=== PATIENT | male | born 1935 | race Caucasian/White ===

== ENCOUNTER 2016-06-12 09:46 | Outpatient (CLI) | payer MEDICARE, MEDICAID ==
[2016-06-12 10:41] LABS: #Basophils 0.1 thou/uL (0.0-0.2); #Eosinphils 0.1 thou/uL (0.0-0.7); #Lymphocytes 1.7 thou/uL (1.20-3.40); #Monocytes 0.7 thou/uL (0.11-0.59); #Neutrophils 3.1 thou/uL (1.40-6.50); %Eosinophils 1.1 % (0.0-10.0); %Lymphocytes 29.1 % (21.0-51.0); %Monocytes 12.7 % (0.0-10.0); Hematocrit 38.8 % (42.0-52.0); Red Blood Cell (RBC) Count 4.76 mill/uL (4.70-6.10); White Blood Cell (WBC) Count 5.7 thou/uL (4.8-10.8)
[2016-06-12 10:55] LABS: ALT (SGPT) 12 U/L (0-55); AST (SGOT) 15 U/L (5-34); Alkaline Phosphatase 184 U/L (40-150); Anion Gap 10 mmol/L (10-20); BUN (Urea Nitrogen) 10 mg/dL (8.4-25.7); Bilirubin, Total 0.9 mg/dL (0.2-1.2); Calc. Creatinine Clearance 0 mL/min (70-130); Carbon Dioxide 24 mmol/L (23-31); Chloride 110 mmol/L (98-107); Estimated GFR-MDRD 69; Hemoglobin A1c 5.1 % (4.0-6.0); LDL Cholesterol, Calculated 122 mg/dL; Protein, Total 5.4 g/dL (5.8-8.1)
== END 2016-06-12 09:47 ==
LOC: NAVSJIPCSP 09:46
PROVIDERS: ATTEND Internal Medicine
DX: I25.5 Ischemic cardiomyopathy (principal); I25.810 Atherosclerosis of coronary artery bypass graft(s) without angina pectoris; I10 Essential (primary) hypertension
CPT/HCPCS: 80053; 80061; 83036; 84443; 85025

== ENCOUNTER 2016-09-25 07:18 | Outpatient (CLI) | payer MEDICARE, MEDICAID ==
[2016-09-25 08:53] LABS: #Basophils 0.1 thou/uL (0.0-0.2); #Eosinphils 0.1 thou/uL (0.0-0.7); #Lymphocytes 1.8 thou/uL (1.20-3.40); #Monocytes 0.9 thou/uL (0.11-0.59); #Neutrophils 3.6 thou/uL (1.40-6.50); %Lymphocytes 28.1 % (21.0-51.0); %Monocytes 13.3 % (0.0-10.0); %Neutrophils 55.7 % (42.0-75.0); Hemoglobin 12.1 g/dL (14.0-18.0); Mean Corpuscular Hemoglobin 26.1 pg (27.0-31.0); Mean Corpuscular Volume 76.8 fl (80.0-94.0); Mean Platelet Volume 8.5 fL (7.4-10.4); Platelet Count 145 thou/uL (130-400); RBC Distribution Width 14.9 % (11.5-14.5); Red Blood Cell (RBC) Count 4.63 mill/uL (4.70-6.10); White Blood Cell (WBC) Count 6.6 thou/uL (4.8-10.8)
[2016-09-25 09:14] LABS: ALT (SGPT) 9 U/L (0-55); AST (SGOT) 15 U/L (5-34); Albumin 3.7 g/dL (3.4-4.8); Alkaline Phosphatase 182 U/L (40-150); Anion Gap 14 mmol/L (10-20); BUN (Urea Nitrogen) 15 mg/dL (8.4-25.7); Bilirubin, Total 0.6 mg/dL (0.2-1.2); Calc. Creatinine Clearance 0 mL/min (70-130); Calcium 8.7 mg/dL (7.8-10.44); Carbon Dioxide 25 mmol/L (23-31); Chloride 103 mmol/L (98-107); Estimated GFR-MDRD 59; Globulin 2.3 g/dL (2.4-3.5); Glucose 95 mg/dL (83-110); Potassium 3.8 mmol/L (3.5-5.1); Sodium 138 mmol/L (136-145)
== END 2016-09-25 07:19 ==
LOC: NAV NNR 07:18
PROVIDERS: ATTEND Internal Medicine
DX: I10 Essential (primary) hypertension (principal)
CPT/HCPCS: 80053; 83880; 84443; 85025

== ENCOUNTER 2016-10-31 07:32 | Outpatient (CLI) | payer MEDICARE, OTHER ==
[2016-10-31 11:34] LABS: INR-International Normal Ratio 1.2; Prothrombin Time 15.4 SEC (12.0-14.7)
== END 2016-10-31 07:33 | disposition home or self-care (01) ==
LOC: NAV LABSP 07:32
PROVIDERS: ATTEND Internal Medicine
DX: I10 Essential (primary) hypertension (principal); I24.9 Acute ischemic heart disease, unspecified; N40.0 Benign prostatic hyperplasia without lower urinary tract symptoms; I25.10 Atherosclerotic heart disease of native coronary artery without angina pectoris
CPT/HCPCS: 36415; 85610

== ENCOUNTER 2016-11-07 10:32 | Outpatient (CLI) | payer MEDICARE, OTHER ==
[2016-11-07 10:52] LABS: INR-International Normal Ratio 1.1
== END 2016-11-07 10:33 | disposition home or self-care (01) ==
LOC: NAV LAB 10:32
PROVIDERS: ATTEND Internal Medicine
DX: I10 Essential (primary) hypertension (principal); I25.2 Old myocardial infarction; I24.9 Acute ischemic heart disease, unspecified; N40.0 Benign prostatic hyperplasia without lower urinary tract symptoms
CPT/HCPCS: 36415; 85610

== ENCOUNTER 2016-11-14 07:14 | Outpatient (CLI) | payer MEDICARE, OTHER ==
[2016-11-14 08:24] LABS: Bilirubin Negative (Negative); Blood, Urine Small (Negative); Clarity Clear (Clear); Glucose, Urine (Dipstick) Negative (Negative); Leukocyte Trace (Negative); Nitrite Negative (Negative); Protein, Urine (Dipstick) Negative (Neg-Trace); pH, Urine 6.5 (5.0-9.0)
[2016-11-14 09:01] LABS: Bacteria/HPF Rare-Few HPF (None Seen); RBC/HPF 0-3 HPF (0-3); Squamous Epithelial 0-3 HPF (0-3); WBC/HPF 0-3 HPF (0-3)
== END 2016-11-14 07:15 | disposition home or self-care (01) ==
LOC: NAV LABSP 07:14
PROVIDERS: ATTEND Internal Medicine
DX: I10 Essential (primary) hypertension (principal)
CPT/HCPCS: 81003; 81015; 87077; 87086

== ENCOUNTER 2016-12-01 08:25 | Outpatient (CLI) | payer MEDICARE, OTHER ==
[2016-12-01 08:40] LABS: INR-International Normal Ratio 1.7; Prothrombin Time 20.3 SEC (12.0-14.7)
== END 2016-12-01 08:26 | disposition home or self-care (01) ==
LOC: NAV LABSP 08:25
PROVIDERS: ATTEND Internal Medicine
DX: I69.90 Unspecified sequelae of unspecified cerebrovascular disease (principal); Z86.73 Personal history of transient ischemic attack (TIA), and cerebral infarction without residual deficits; Z79.01 Long term (current) use of anticoagulants
CPT/HCPCS: 36415; 85610

== ENCOUNTER 2016-12-08 11:37 | Outpatient (CLI) | payer MEDICARE, OTHER ==
[2016-12-08 14:15] LABS: INR-International Normal Ratio 1.3; Prothrombin Time 16.5 SEC (12.0-14.7)
== END 2016-12-08 11:38 | disposition home or self-care (01) ==
LOC: NAV LABSP 11:37
PROVIDERS: ATTEND Internal Medicine
DX: I24.9 Acute ischemic heart disease, unspecified (principal); N40.0 Benign prostatic hyperplasia without lower urinary tract symptoms; I25.2 Old myocardial infarction; I10 Essential (primary) hypertension
CPT/HCPCS: 36415; 85610

== ENCOUNTER 2016-12-11 07:20 | Outpatient (CLI) | payer MEDICARE, OTHER ==
[2016-12-11 08:01] LABS: INR-International Normal Ratio 1.8; Prothrombin Time 21.2 SEC (12.0-14.7)
== END 2016-12-11 07:21 | disposition home or self-care (01) ==
LOC: NAV LABSP 07:20
PROVIDERS: ATTEND Internal Medicine
DX: N40.0 Benign prostatic hyperplasia without lower urinary tract symptoms (principal); I24.9 Acute ischemic heart disease, unspecified; Z79.899 Other long term (current) drug therapy
CPT/HCPCS: 36415; 85610

== ENCOUNTER 2016-12-15 13:38 | Outpatient (CLI) | payer MEDICARE, MEDICAID ==
[2016-12-15 14:32] LABS: INR-International Normal Ratio 2.6; Prothrombin Time 28.6 SEC (12.0-14.7)
== END 2016-12-15 13:39 | disposition home or self-care (01) ==
LOC: NAV LABSP 13:38
PROVIDERS: ATTEND Internal Medicine
DX: Z51.81 Encounter for therapeutic drug level monitoring (principal); I24.9 Acute ischemic heart disease, unspecified; I10 Essential (primary) hypertension; N40.0 Benign prostatic hyperplasia without lower urinary tract symptoms; I25.2 Old myocardial infarction; Z79.01 Long term (current) use of anticoagulants
CPT/HCPCS: 36415-59

== ENCOUNTER 2016-12-22 09:21 | Outpatient (CLI) | payer MEDICARE, MEDICAID ==
[2016-12-22 09:54] LABS: INR-International Normal Ratio 3.3
== END 2016-12-22 09:22 | disposition home or self-care (01) ==
LOC: NAV LABSP 09:21
PROVIDERS: ATTEND Internal Medicine
DX: I69.90 Unspecified sequelae of unspecified cerebrovascular disease (principal); I24.9 Acute ischemic heart disease, unspecified; I25.2 Old myocardial infarction; N40.0 Benign prostatic hyperplasia without lower urinary tract symptoms; I10 Essential (primary) hypertension
CPT/HCPCS: 36415; 85610

== ENCOUNTER 2016-12-29 09:14 | Outpatient (CLI) | payer MEDICARE, OTHER ==
[2016-12-29 10:26] LABS: INR-International Normal Ratio 1.8; Prothrombin Time 21.4 SEC (12.0-14.7)
== END 2016-12-29 09:15 | disposition home or self-care (01) ==
LOC: NAV LABSP 09:14
PROVIDERS: ATTEND Internal Medicine
DX: I11.9 Hypertensive heart disease without heart failure (principal); I24.9 Acute ischemic heart disease, unspecified; I69.90 Unspecified sequelae of unspecified cerebrovascular disease; N40.0 Benign prostatic hyperplasia without lower urinary tract symptoms; I25.2 Old myocardial infarction
CPT/HCPCS: 36415; 85610

== ENCOUNTER 2017-01-05 09:44 | Outpatient (CLI) | payer MEDICARE, OTHER ==
[2017-01-05 10:48] LABS: INR-International Normal Ratio 1.9; Prothrombin Time 21.9 SEC (12.0-14.7)
[2017-01-05 12:42] LABS: #Basophils 0.1 thou/uL (0.0-0.2); #Eosinphils 0.1 thou/uL (0.0-0.7); #Lymphocytes 1.6 thou/uL (1.20-3.40); #Monocytes 0.8 thou/uL (0.11-0.59); #Neutrophils 3.5 thou/uL (1.40-6.50); %Basophils 1.9 % (0.0-1.0); %Eosinophils 1.4 % (0.0-10.0); %Lymphocytes 26.7 % (21.0-51.0); %Monocytes 13.4 % (0.0-10.0); %Neutrophils 56.6 % (42.0-75.0); Hemoglobin 12.7 g/dL (14.0-18.0); Mean Corpuscular HGB CONC 32.8 g/dL (32.0-36.0); Mean Corpuscular Hemoglobin 25.6 pg (27.0-31.0); Mean Platelet Volume 8.7 fL (7.4-10.4); Platelet Count 150 thou/uL (130-400); RBC Distribution Width 15.8 % (11.5-14.5); Red Blood Cell (RBC) Count 4.98 mill/uL (4.70-6.10); White Blood Cell (WBC) Count 6.1 thou/uL (4.8-10.8)
== END 2017-01-05 09:45 ==
LOC: NAV LABSP 09:44
PROVIDERS: ATTEND Internal Medicine
DX: I69.90 Unspecified sequelae of unspecified cerebrovascular disease (principal); I63.313 Cerebral infarction due to thrombosis of bilateral middle cerebral arteries; I25.5 Ischemic cardiomyopathy; I48.2 Chronic atrial fibrillation; I10 Essential (primary) hypertension; I25.2 Old myocardial infarction; Z79.01 Long term (current) use of anticoagulants
CPT/HCPCS: 36415; 80053; 83880; 85025; 85610

== ENCOUNTER 2017-01-09 07:07 | Outpatient (CLI) | payer MEDICARE, OTHER ==
[2017-01-09 07:21] LABS: INR-International Normal Ratio 1.4; Prothrombin Time 17.3 SEC (12.0-14.7)
== END 2017-01-09 07:08 | disposition home or self-care (01) ==
LOC: NAV LABSP 07:07
PROVIDERS: ATTEND Internal Medicine
DX: Z79.01 Long term (current) use of anticoagulants (principal)
CPT/HCPCS: 36415; 85610

== ENCOUNTER 2017-01-13 07:54 | Outpatient (CLI) | payer MEDICARE, MEDICAID ==
[2017-01-13 09:28] LABS: INR-International Normal Ratio 1.2; Prothrombin Time 15.5 SEC (12.0-14.7)
== END 2017-01-13 07:55 | disposition home or self-care (01) ==
LOC: NAV LABSP 07:54
PROVIDERS: ATTEND Internal Medicine
DX: Z51.81 Encounter for therapeutic drug level monitoring (principal); Z79.01 Long term (current) use of anticoagulants
CPT/HCPCS: 36415; 85610

== ENCOUNTER 2017-01-19 07:02 | Outpatient (CLI) | payer MEDICARE, MEDICAID ==
[2017-01-19 08:20] LABS: Prothrombin Time 23.3 SEC (12.0-14.7)
== END 2017-01-19 07:03 | disposition home or self-care (01) ==
LOC: NAV LABSP 07:02
PROVIDERS: ATTEND Internal Medicine
DX: I10 Essential (primary) hypertension (principal); I25.2 Old myocardial infarction; I24.9 Acute ischemic heart disease, unspecified; N40.0 Benign prostatic hyperplasia without lower urinary tract symptoms
CPT/HCPCS: 36415; 85610

== ENCOUNTER 2017-01-26 08:36 | Outpatient (CLI) | payer MEDICARE, OTHER ==
[2017-01-26 08:58] LABS: INR-International Normal Ratio 3.1; Prothrombin Time 33.4 SEC (12.0-14.7)
== END 2017-01-26 08:37 | disposition home or self-care (01) ==
LOC: NAV LABSP 08:36
PROVIDERS: ATTEND Internal Medicine
DX: Z51.81 Encounter for therapeutic drug level monitoring (principal); I69.90 Unspecified sequelae of unspecified cerebrovascular disease; I24.9 Acute ischemic heart disease, unspecified; Z79.01 Long term (current) use of anticoagulants
CPT/HCPCS: 36415; 85610

== ENCOUNTER 2017-01-30 12:00 | Outpatient (CLI) | payer MEDICARE, OTHER ==
[2017-01-30 13:30] LABS: #Basophils 0.1 thou/uL (0.0-0.2); #Eosinphils 0.1 thou/uL (0.0-0.7); #Lymphocytes 1.2 thou/uL (1.20-3.40); #Monocytes 0.7 thou/uL (0.11-0.59); #Neutrophils 3.4 thou/uL (1.40-6.50); %Basophils 1.4 % (0.0-1.0); %Lymphocytes 22.4 % (21.0-51.0); %Monocytes 13.1 % (0.0-10.0); %Neutrophils 62.1 % (42.0-75.0); Hemoglobin 11.5 g/dL (14.0-18.0); Mean Corpuscular HGB CONC 32.3 g/dL (32.0-36.0); Mean Corpuscular Hemoglobin 25.1 pg (27.0-31.0); Mean Corpuscular Volume 77.8 fl (80.0-94.0); Platelet Count 151 thou/uL (130-400); Red Blood Cell (RBC) Count 4.59 mill/uL (4.70-6.10); White Blood Cell (WBC) Count 5.4 thou/uL (4.8-10.8)
[2017-01-30 13:38] LABS: INR-International Normal Ratio 2.9; Prothrombin Time 31.6 SEC (12.0-14.7)
[2017-01-30 13:43] LABS: ALT (SGPT) 13 U/L (8-55); AST (SGOT) 17 U/L (5-34); Albumin 3.8 g/dL (3.4-4.8); Alkaline Phosphatase 135 U/L (40-150); Anion Gap 12 mmol/L (10-20); BUN (Urea Nitrogen) 15 mg/dL (8.4-25.7); Bilirubin, Total 0.8 mg/dL (0.2-1.2); Calc. Creatinine Clearance 0 mL/min (70-130); Calcium 8.8 mg/dL (7.8-10.44); Carbon Dioxide 26 mmol/L (23-31); Chloride 99 mmol/L (98-107); Estimated GFR-MDRD 56; Globulin 2.3 g/dL (2.4-3.5); Glucose 129 mg/dL (83-110); Potassium 3.8 mmol/L (3.5-5.1); Protein, Total 6.1 g/dL (5.8-8.1); Sodium 133 mmol/L (136-145)
== END 2017-01-30 12:01 | disposition home or self-care (01) ==
LOC: NAV LABSP 12:00
PROVIDERS: ATTEND Internal Medicine
DX: I24.9 Acute ischemic heart disease, unspecified (principal); I10 Essential (primary) hypertension
CPT/HCPCS: 36415; 80053; 85025; 85610

== ENCOUNTER 2017-02-04 10:13 | Outpatient (CLI) | payer MEDICARE, OTHER ==
[2017-02-04 12:28] LABS: INR-International Normal Ratio 2.6; Prothrombin Time 28.6 SEC (12.0-14.7)
== END 2017-02-04 10:14 | disposition home or self-care (01) ==
LOC: NAV LABSP 10:13
PROVIDERS: ATTEND Internal Medicine
DX: I24.9 Acute ischemic heart disease, unspecified (principal); N40.0 Benign prostatic hyperplasia without lower urinary tract symptoms; I25.2 Old myocardial infarction; I69.90 Unspecified sequelae of unspecified cerebrovascular disease; I10 Essential (primary) hypertension
CPT/HCPCS: 36415; 85610

== ENCOUNTER 2017-02-09 08:21 | Outpatient (CLI) | payer MEDICARE, MEDICAID ==
[2017-02-09 08:42] LABS: INR-International Normal Ratio 3.1; Prothrombin Time 33.7 SEC (12.0-14.7)
== END 2017-02-09 08:22 | disposition home or self-care (01) ==
LOC: NAV LABSP 08:21
PROVIDERS: ATTEND Internal Medicine
DX: I24.9 Acute ischemic heart disease, unspecified (principal)
CPT/HCPCS: 36415; 85610

== ENCOUNTER 2017-02-17 12:05 | Outpatient (CLI) | payer MEDICARE, MEDICAID ==
[2017-02-17 13:00] LABS: INR-International Normal Ratio 2.1; Prothrombin Time 23.8 SEC (12.0-14.7)
== END 2017-02-17 12:06 | disposition home or self-care (01) ==
LOC: NAV LABSP 12:05
PROVIDERS: ATTEND Internal Medicine
DX: I69.90 Unspecified sequelae of unspecified cerebrovascular disease (principal); I24.9 Acute ischemic heart disease, unspecified
CPT/HCPCS: 36415; 85610

== ENCOUNTER 2017-02-23 08:05 | Outpatient (CLI) | payer MEDICARE, MEDICAID ==
[2017-02-23 09:02] LABS: Prothrombin Time 45.4 SEC (12.0-14.7)
[2017-02-23 09:53] LABS: INR-International Normal Ratio 4.5
== END 2017-02-23 08:06 | disposition home or self-care (01) ==
LOC: NAV LABSP 08:05
PROVIDERS: ATTEND Internal Medicine
DX: I69.90 Unspecified sequelae of unspecified cerebrovascular disease (principal); I24.9 Acute ischemic heart disease, unspecified; N40.0 Benign prostatic hyperplasia without lower urinary tract symptoms; I25.2 Old myocardial infarction; I10 Essential (primary) hypertension
CPT/HCPCS: 36415; 85610

== ENCOUNTER 2017-05-22 04:55 | Emergency (ER) | payer MEDICARE, OTHER ==
[2017-05-22 05:39] LABS: INR-International Normal Ratio 1.8
[2017-05-22 05:47] LABS: Band 5 % (5-11); Hemoglobin 12.6 g/dL (14.0-18.0); Lymphocytes 22 % (21-51); MDiff Complete? YES; Mean Corpuscular HGB CONC 34.5 g/dL (32.0-36.0); Mean Corpuscular Hemoglobin 25.8 pg (27.0-31.0); Mean Corpuscular Volume 74.7 fl (80.0-94.0); Mean Platelet Volume 8.6 fL (7.4-10.4); Microcytosis MODERATE=15-30 cells (100X) (0-5/hpf); Monocytes 6 % (0-10); Neutrophil 67 % (42-75); PLT Morphology Comment Appears Adequate; Platelet Count 139 thou/uL (130-400); RBC Distribution Width 15.6 % (11.5-14.5); Red Blood Cell (RBC) Count 4.88 mill/uL (4.70-6.10)
[2017-05-22 05:50] LABS: CKMB 2.1 ng/mL (0-6.6); Troponin I 0.032 ng/mL (< 0.028)
[2017-05-22 05:55] LABS: Bilirubin Negative (Negative); Blood, Urine Trace (Negative); Clarity Clear (Clear); Glucose, Urine (Dipstick) Negative (Negative); Leukocyte Trace (Negative); Nitrite Negative (Negative); Protein, Urine (Dipstick) Negative (Neg-Trace); Specific Gravity, Urine 1.015 (1.005-1.030); Urobilinogen 0.2 mg/dL (0.2-1.0)
[2017-05-22 05:57] LABS: Bacteria/HPF None Seen HPF (None Seen); Squamous Epithelial 0-3 HPF (0-3); WBC/HPF None Seen HPF (0-3)
[2017-05-22] MEDS ORDERED: Nitroglycerin 2% Ointment 1 INCH/1 GM Packet ONE (06:07)
[2017-05-22 06:12] LABS: ALT (SGPT) 9 U/L (8-55); AST (SGOT) 13 U/L (5-34); Albumin 3.6 g/dL (3.4-4.8); Alkaline Phosphatase 96 U/L (40-150); Anion Gap 14 mmol/L (10-20); BUN (Urea Nitrogen) 13 mg/dL (8.4-25.7); Bilirubin, Total 0.9 mg/dL (0.2-1.2); Calc. Creatinine Clearance 0 mL/min (70-130); Calcium 8.6 mg/dL (7.8-10.44); Carbon Dioxide 22 mmol/L (23-31); Chloride 98 mmol/L (98-107); Estimated GFR-MDRD 58; Globulin 2.6 g/dL (2.4-3.5); Glucose 137 mg/dL (83-110); Potassium 3.3 mmol/L (3.5-5.1); Protein, Total 6.2 g/dL (5.8-8.1); Sodium 131 mmol/L (136-145)
--- NOTE | 2017-05-22 08:00 | RAD ---
AP VIEW CHEST: HISTORY: Fall with chest injury. TECHNIQUE: AP view chest is obtained. FINDINGS: Sternotomy wires are seen. The lungs are well aerated. No evidence of active intrathoracic disease is seen. No evidence of effusions, pneumonia, or pneumothorax seen. IMPRESSION: Unremarkable anterior-posterior view chest. POS: [facility]
--- NOTE | 2017-05-22 08:08 | CT ---
PRELIMINARY REPORT/[facility]/EMERGENCY AFTER HOURS PROCEDURE: EXAM: CT Head Without Intravenous Contrast EXAM DATE/TIME: Exam ordered 05/22/2017 5:39 AM CLINICAL HISTORY: 82 years old, male; Injury or trauma; Fall; Initial encounter; Abrasion; Not specified; Injury date: 05/22/17; Injury details: Nh patient presents for evaluation of fall, from bed, from height less than 3 feet, on to carpeted floor, patient presents for evaluation of no apparent injury; He says he let himself down; He says he feels a little weak and nauseated; He normally uses a wheelchair; He was att empting to get up to go to the bathroom. TECHNIQUE: Axial computed tomography images of the head/brain without intravenous contrast. All CT scans at this facility use one or more dose reduction techniques, viz.: automated exposure control; ma/kV adjustme nt per patient size (including targeted exams where dose is matched to indication; i.e. head); or ite rative reconstruction technique. Coronal and sagittal reformatted images were created and reviewed. COMPARISON: No relevant prior studies available. FINDINGS: Brain: There are confluent areas of hypoattenuation within the periventricular and subcortical white matter compatible with moderate chronic microvascular ischemic change. There are multiple small hypod ensities in the basal ganglia, consistent with remote lacunar infarctions. There is a normal benign m ega cisterna magna. No hemorrhage. Ventricles: Normal. No ventriculomegaly. 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 No acute fracture. Soft tissues: Normal. Sinuses: Unremarkable as visualized. No acute sinusitis. Mastoid air cells: Unremarkable as visualized. No mastoid effusion. IMPRESSION: No acute intracranial hemorrhage. Thank you for allowing us to participate in the care of your patient. Dictated and Authenticated by: Zac Haji MD 05/22/2017 6:14 AM Central Time ([place] & [place]) FINAL REPORT EMERGENC AFTER HOURS CT OF BRAIN PERFORMED WITHOUT CONTRAST ENHANCEMENT: Date: 05/22/17 HISTORY: Fall with head injury. COMPARISON: 06/18/16 study. FINDINGS: There is generalized ventricular and sulcal prominence. There are prominent chronic white matter bermeo ges. There are no signs of intracerebral hemorrhage or extra-axial fluid collections. The mastoid air cells and visualized sinuses are clear. 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 No interval ch joanne since the previous exam. IMPRESSION: 1. Pagetoid-type changes of the skull. 2. Atrophy with marked chronic white matter change. This report is in agreement with the preliminary report issued by [facility]. POS: [facility]
--- NOTE | 2017-05-22 08:12 | CT ---
PRELIMINARY REPORT/[facility]/EMERGENCY AFTER HOURS PROCEDURE: EXAM: CT Cervical Spine Without Intravenous Contrast EXAM DATE/TIME: Exam ordered 05/22/2017 5:42 AM CLINICAL HISTORY: 82 years old, male; Injury or trauma; Fall; Initial encounter; Abrasion; Injury date: 05/22/17; Injur y details: Nh patient presents for evaluation of fall, from bed, from height less than 3 feet, on to carpeted floor, patient presents for evaluation of no apparent injury; He says he let himself down; H e says he feels a little weak and nauseated; He normally uses a wheelchair; He was attempting to get up to go to the bathroom. TECHNIQUE: Axial computed tomography images of the cervical spine without intravenous contrast. All CT scans at this facility use one or more dose reduction techniques, viz.: automated exposure control; ma/kV adjustment per patient size (including targeted exams where dose is matched to indication; i.e. head) ; or iterative reconstruction technique. Coronal and sagittal reformatted images were created and reviewed. COMPARISON: No relevant prior studies available. FINDINGS: Vertebrae: No acute cervical spine fracture is identified. Discs/spinal canal/neural foramina: The cervical spine demonstrates mild degenerative changes at mult iple levels with mild stenosis at C5-C6. Other bones/joints: Pagetoid changes of the skull. Soft tissues: Normal. Thyroid: The thyroid gland is normal. Lung apices: The visualized portions of the lung apices are normal. IMPRESSION: No acute cervical spine fracture is identified. Thank you for allowing us to participate in the care of your patient. Dictated and Authenticated by: Zac Haji MD 05/22/2017 6:18 AM Central Time ([place] & [place]) FINAL REPORT EMERGENCY AFTER HOURS CT OF CERVICAL SPINE PERFORMED WITHOUT CONTRAST ENHANCEMENT: Date: 05/22/17 HISTORY: Fall with neck pain. FINDINGS: The bones appear demineralized. Some deformity to the proximal end of the left clavicle is probably o n the basis of arthritic change. There expansile changes of the skull again noted. This is probably r elated to Pagetoid or possibly fibrous dysplasia type change. The vertebral bodies are normal in heig ht. There is disc narrowing at C4-5 and C5-6. Degenerative facet changes are noted. The facets are in normal alignment. At the C5-6 level, there is bilateral foraminal narrowing, greater on the right. T here is no CT evidence for fracture. IMPRESSION: No CT evidence of fracture of cervical spine. This report is in agreement with the preliminary report issued by [facility]. POS: [facility]
== END 2017-05-22 06:52 | disposition short-term general hospital (02) ==
LOC: NAV ERS 04:55
DX: R53.1 Weakness (principal); R79.89 Other specified abnormal findings of blood chemistry; I25.2 Old myocardial infarction; I10 Essential (primary) hypertension; M81.0 Age-related osteoporosis without current pathological fracture; F03.90 Unspecified dementia, unspecified severity, without behavioral disturbance, psychotic disturbance, mood disturbance, and anxiety; G40.909 Epilepsy, unspecified, not intractable, without status epilepticus; F32.9 Major depressive disorder, single episode, unspecified; Z79.82 Long term (current) use of aspirin; Z86.73 Personal history of transient ischemic attack (TIA), and cerebral infarction without residual deficits; Z79.899 Other long term (current) drug therapy; Z79.01 Long term (current) use of anticoagulants; W06.XXXA Fall from bed, initial encounter
CPT/HCPCS: 36415; 51701; 70450; 71010; 72125; 80053; 81003; 81015; 82553; 83880; 84484; 85025; 85610; 93005

== ENCOUNTER 2018-09-17 07:19 | Outpatient (CLI) | payer MEDICARE ==
[2018-09-17 07:47] LABS: INR-International Normal Ratio 2.5
== END 2018-09-17 07:20 | disposition home or self-care (01) ==
LOC: NAV LAB 07:19
PROVIDERS: ATTEND Internal Medicine
DX: I24.9 Acute ischemic heart disease, unspecified (principal)
CPT/HCPCS: 36415; 85610

== ENCOUNTER 2018-10-21 08:55 | Outpatient (CLI) | payer MEDICARE, OTHER ==
[2018-10-21 10:05] LABS: #Basophils 0.1 thou/uL (0.0-0.2); #Eosinphils 0.1 thou/uL (0.0-0.7); #Lymphocytes 1.9 thou/uL (1.20-3.40); #Monocytes 0.8 thou/uL (0.11-0.59); #Neutrophils 5.1 thou/uL (1.40-6.50); %Basophils 1.1 % (0.0-1.0); %Eosinophils 0.8 % (0.0-10.0); %Lymphocytes 23.5 % (21.0-51.0); %Monocytes 9.8 % (0.0-10.0); %Neutrophils 64.8 % (42.0-75.0); Mean Corpuscular Hemoglobin 25.8 pg (27.0-31.0); Mean Corpuscular Volume 78.3 fL (78.0-98.0); Mean Platelet Volume 8.3 fL (7.4-10.4); Platelet Count 149 thou/uL (130-400); RBC Distribution Width 15.9 % (11.5-14.5); Red Blood Cell (RBC) Count 4.63 mill/uL (4.70-6.10); White Blood Cell (WBC) Count 7.9 thou/uL (4.8-10.8)
[2018-10-21 10:10] LABS: ALT (SGPT) 14 U/L (8-55); AST (SGOT) 20 U/L (5-34); Albumin 3.7 g/dL (3.4-4.8); Alkaline Phosphatase 79 U/L (40-150); Anion Gap 13 mmol/L (10-20); BUN (Urea Nitrogen) 15 mg/dL (8.4-25.7); Bilirubin, Total 0.7 mg/dL (0.2-1.2); Calc. Creatinine Clearance 0 mL/min (70-130); Calcium 8.6 mg/dL (7.8-10.44); Carbon Dioxide 25 mmol/L (23-31); Chloride 97 mmol/L (98-107); Estimated GFR-MDRD 48; Globulin 2.2 g/dL (2.4-3.5); Glucose 152 mg/dL (83-110); Potassium 3.9 mmol/L (3.5-5.1); Protein, Total 5.9 g/dL (5.8-8.1); Sodium 131 mmol/L (136-145)
== END 2018-10-21 08:56 | disposition home or self-care (01) ==
LOC: NAV LABSP 08:55
PROVIDERS: ATTEND Internal Medicine
DX: I10 Essential (primary) hypertension (principal)
CPT/HCPCS: 36415; 80053; 85025

== ENCOUNTER 2018-12-01 13:38 | Outpatient (CLI) | payer MEDICARE, OTHER ==
[2018-12-01 14:01] LABS: INR-International Normal Ratio 2.6; Prothrombin Time 27.4 SEC (12.0-14.7)
== END 2018-12-01 13:39 | disposition home or self-care (01) ==
LOC: NAV LABSP 13:38
PROVIDERS: ATTEND Internal Medicine
DX: I24.9 Acute ischemic heart disease, unspecified (principal)
CPT/HCPCS: 36415; 85610

== ENCOUNTER 2019-01-24 22:50 | Inpatient (IN) | payer MEDICARE, MEDICAID ==
[2019-01-24 23:32] LABS: #Lymphocytes 0.8 thou/uL (1.20-3.40); #Monocytes 1.3 thou/uL (0.11-0.59); #Neutrophils 11.3 thou/uL (1.40-6.50); %Basophils 0.3 % (0.0-1.0); %Eosinophils 0.2 % (0.0-10.0); %Monocytes 9.7 % (0.0-10.0); %Neutrophils 83.8 % (42.0-75.0); Hemoglobin 12.5 g/dL (14.0-18.0); Mean Corpuscular HGB CONC 33.5 g/dL (32.0-36.0); Mean Corpuscular Hemoglobin 25.8 pg (27.0-31.0); Mean Corpuscular Volume 77.1 fL (78.0-98.0); Mean Platelet Volume 8.4 fL (7.4-10.4); Platelet Count 135 thou/uL (130-400); RBC Distribution Width 14.8 % (11.5-14.5); Red Blood Cell (RBC) Count 4.84 mill/uL (4.70-6.10); White Blood Cell (WBC) Count 13.4 thou/uL (4.8-10.8)
[2019-01-24 23:49] LABS: ALT (SGPT) 16 U/L (8-55); AST (SGOT) 21 U/L (5-34); Albumin 4.1 g/dL (3.4-4.8); Alkaline Phosphatase 144 U/L (40-150); Anion Gap 18 mmol/L (10-20); BUN (Urea Nitrogen) 21 mg/dL (8.4-25.7); CK (CPK) 125 U/L (30-200); Calc. Creatinine Clearance 0 mL/min (70-130); Calcium 8.8 mg/dL (7.8-10.44); Carbon Dioxide 19 mmol/L (23-31); Chloride 94 mmol/L (98-107); Estimated GFR-MDRD 39; Globulin 2.8 g/dL (2.4-3.5); Glucose 157 mg/dL (83-110); Lipase 7 U/L (8-78); Potassium 3.7 mmol/L (3.5-5.1); Protein, Total 6.9 g/dL (5.8-8.1); Sodium 127 mmol/L (136-145)
[2019-01-25] MEDS ORDERED: Sodium Chloride 0.9% 500 ML ONE (00:41)
[2019-01-25 00:43] LABS: INR-International Normal Ratio 2.7; Prothrombin Time 28.2 SEC (12.0-14.7)
[2019-01-25 00:44] LABS: Bilirubin Small (Negative); Blood, Urine Negative (Negative); Clarity Clear (Clear); Glucose, Urine (Dipstick) Negative (Negative); Leukocyte Negative (Negative); Nitrite Negative (Negative); Protein, Urine (Dipstick) 30 mg/dL (Neg-Trace)
[2019-01-25 00:49] LABS: Bacteria/HPF None Seen HPF (None Seen); RBC/HPF None Seen HPF (0-3); Squamous Epithelial 0-3 HPF (0-3); WBC/HPF 0-3 HPF (0-3)
[2019-01-25] MEDS: Sodium Chloride 0.9% 1,000 ML IV SCH ×2 (02:59→20:58)
[2019-01-25] MEDS ORDERED: Mag-Al Plus 1200 MG/1200 MG/120 MG/30 ML UDCUP PO PRN (03:02)
[2019-01-25] MEDS ORDERED: Acetaminophen 325 MG TAB PO PRN ×2 (03:02→09:55)
[2019-01-25] MEDS ORDERED: cloNIDine 0.1 MG TAB PO PRN ×2 (03:03→09:55)
[2019-01-25] MEDS ORDERED: Loperamide HCl 2 MG CAP PO PRN (03:04)
[2019-01-25] MEDS ORDERED: Polyethylene Glycol 3350 17 GM Packet PO PRN ×2 (03:05→09:55)
[2019-01-25 03:23] VITALS: BMI 27.1
[2019-01-25 05:23] LABS: #Basophils 0.1 thou/uL (0.0-0.2); #Lymphocytes 1.4 thou/uL (1.20-3.40); #Monocytes 1.3 thou/uL (0.11-0.59); #Neutrophils 6.9 thou/uL (1.40-6.50); %Basophils 0.7 % (0.0-1.0); %Eosinophils 0.4 % (0.0-10.0); %Lymphocytes 14.5 % (21.0-51.0); %Monocytes 13.1 % (0.0-10.0); %Neutrophils 71.2 % (42.0-75.0); Mean Corpuscular HGB CONC 33.7 g/dL (32.0-36.0); Mean Corpuscular Hemoglobin 26.1 pg (27.0-31.0); Mean Corpuscular Volume 77.3 fL (78.0-98.0); Mean Platelet Volume 8.3 fL (7.4-10.4); Platelet Count 137 thou/uL (130-400); RBC Distribution Width 15.2 % (11.5-14.5); Red Blood Cell (RBC) Count 4.22 mill/uL (4.70-6.10); White Blood Cell (WBC) Count 9.7 thou/uL (4.8-10.8)
[2019-01-25 05:38] LABS: Anion Gap 15 mmol/L (10-20); BUN (Urea Nitrogen) 22 mg/dL (8.4-25.7); Calc. Creatinine Clearance 48 mL/min (70-130); Calcium 8.2 mg/dL (7.8-10.44); Carbon Dioxide 22 mmol/L (23-31); Chloride 96 mmol/L (98-107); Estimated GFR-MDRD 46; Glucose 113 mg/dL (83-110); Potassium 3.5 mmol/L (3.5-5.1); Sodium 129 mmol/L (136-145)
--- NOTE | 2019-01-25 07:42 | RAD ---
EXAM: XR Lumbar Spine 2 Or 3 View PROVIDED CLINICAL HISTORY: Low back pain after multiple falls today. COMPARISON: None FINDINGS: There are 5 nonrib-bearing lumbar-type vertebral bodies. Multilevel degenerative changes are seen wit h narrowing of the intervertebral disc spaces at all levels and scattered osteophytes present. There is diffuse osteopenia. The vertebral body heights are within normal limits. No fracture is iden tified. Lumbosacral junction is partially obscured due to overlying iliac bones which limits adequate evaluation at this level. There is otherwise no evidence of a subluxation. Dense vascular ca lcifications are seen in the abdominal aorta and involving the iliac arteries. Surgical clips overlie the right upper. IMPRESSION: 1. Osteopenia and diffuse degenerative changes throughout the lumbar spine. 2. No fracture is seen. There is suboptimal evaluation of the lumbosacral junction, but there is othe rwise no evidence of subluxation.
--- NOTE | 2019-01-25 07:44 | RAD ---
EXAM: CHEST ONE VIEW HISTORY: Patient is post multiple falls today. COMPARISON: 03/03/2018 FINDINGS: Postsurgical changes related to median sternotomy and cardiac valve replacement are again noted. Card iac silhouette is magnified by projection. Pulmonary vasculature is within normal limits. The lungs are clear. Vascular calcifications are seen in the thoracic aorta. Chest is overall stable from prior study. IMPRESSION: No acute cardiopulmonary process.
[2019-01-25] MEDS: Chlorthalidone 25 MG TAB PO SCH (08:43)
[2019-01-25] MEDS: levETIRAcetam 500 MG TAB PO SCH ×2 (08:43→20:57)
[2019-01-25] MEDS: Losartan Potassium 50 MG TAB PO SCH (08:43)
[2019-01-25] MEDS: pyridOXINE 50 MG (B6) TAB PO SCH (08:43)
[2019-01-25] MEDS: Aspirin Chewable 81 MG TAB PO SCH (08:43)
[2019-01-25] MEDS: Tamsulosin HCl 0.4 MG CAP PO SCH (08:44)
[2019-01-25] MEDS ORDERED: ALUMINUM PO PRN (09:55)
[2019-01-25] MEDS ORDERED: LOPERAMIDE HCL 4 MG PO PRN (09:55)
[2019-01-25] MEDS ORDERED: MAGNESIUM HYDROXIDE PO PRN (09:55)
[2019-01-25] MEDS: ALENDRONATE 10 MG PO SCH (10:38)
--- NOTE | 2019-01-25 11:45 | HP ---
HISTORY OF PRESENT ILLNESS: Mr. Issa is a well-developed, well-nourished, very pleasant 83-year-old white male, who lives at [facility]. He is followed by Dr. Jacques Jiménez. Unfortunately, yesterday, he had several episodes, where he got extremely weak and was found on the floor three different times. He was brought to the emergency room, evaluated, and found not to have any fractures, but noted to have hyponatremia and generalized weakness. He was admitted to the hospital for hydration because of his dehydration. He was started on all of his home medicines and is here to see if we can decrease his BUN and creatinine and increase his sodium. The patient is on IV fluids at this time. PAST MEDICAL HISTORY: Reveals he has the followin. Coronary artery disease. 2. Myocardial infarction. 3. Metal heart valve per the patient. 4. Hypertension. 5. Vascular dementia. 6. Osteoporosis. 7. Constipation. 8. Cerebrovascular disease. 9. Congestive heart failure. 10. Paget disease. 11. Thrombocytopenia. 12. BPH. 13. More than 30 TIAs. PAST SURGICAL HISTORY: Reveals the patient has had: 1. Appendectomy. 2. Cholecystectomy. 3. Aortic valve replacement. SOCIAL HISTORY: Reveals the patient does not drink alcohol. Does not smoke. He lives at [facility]. ALLERGIES: REVEALED THE PATIENT IS ALLERGIC TO; 1. ADACEL, WHICH IS TDAP. 2. CODEINE. 3. MORPHINE. 4. PENICILLIN. 5. TETANUS VACCINES AND TOXOID. MEDICATIONS: Present medications reveal he is presently on the followin. Clonidine 0.1 b.i.d. p.r.n. 2. Acetaminophen 650 p.r.n. 3. MiraLAX p.r.n. 4. Keppra 500 mg b.i.d. 5. Coumadin 2.5 mg daily. 6. Ranexa 1000 mg b.i.d. 7. Tamsulosin 0.4 mg daily. 8. Vitamin B6 (pyridoxine) 100 mg daily. 9. Losartan 100 mg daily. 10. Chlorthalidone 25 mg daily. 11. Aspirin 81 mg daily. 12. Alendronate 10 mg daily. REVIEW OF SYSTEMS: GENERAL: Revealed the patient denies fever and chills and night sweats. HEENT: Denies any change in his hearing or his eyes. Although he does seem like he is somewhat deaf. Denies any rhinorrhea, cough, cold, congestion, or runny nose. Denies any sore throat. CARDIOVASCULAR: The patient denies chest pain, palpitations, racing or skipping or slow heartbeat. RESPIRATORY: The patient denies cough, cold, congestion, shortness of breath, wheezing. GASTROINTESTINAL: The patient denies abdominal pain, nausea, vomiting, diarrhea , or constipation. GENITOURINARY: The patient denies dysuria, frequency, urgency, or hematuria. MUSCULOSKELETAL: The patient reports back pain, but he states that is chronic. Denies any neck pain. Denies any acute pain from his three falls earlier. SKIN: The patient denies any rashes or skin lesions. NEUROLOGIC: The patient denies dizziness, headaches, focal deficits. PHYSICAL EXAMINATION: GENERAL: This is a well-developed, well-nourished, slightly obese white male, in no apparent distress at this time. He is oriented to person and place. HEENT: Reveals normocephalic and nontraumatic cranium. The pupils are equally round and reactive. Extraocular movements are intact. Nose and throat are slightly dry, but clear. NECK: Supple without masses, nodes, or bruits. CHEST: Clear to auscultation. No rales, rhonchi, wheezes, or cough is heard. HEART: Reveals a regular rate and rhythm with a heart valve click. ABDOMEN: Obese, soft, and nontender without organomegaly, although he had some tenderness last night. Normal bowel sounds are noted. No rebound or guarding is noted. : Deferred. EXTREMITIES: Reveal no clubbing, cyanosis, or edema. ASSESSMENT: 1. Hyponatremia with a sodium last night of 127. 2. Dehydration with a BUN of 21 and creatinine 1.69. The patient's usual creatinine is 1.1 or 1.2. 3. Generalized weakness. 4. Coronary artery disease. 5. Aortic valve replacement. 6. Thrombocytopenia. 7. Benign prostatic hyperplasia. 8. Vascular dementia. 9. Seizure disorder. 10. Hypertension. 11. Paget disease. 12. History of congestive heart failure, unknown systolic or diastolic. PLAN: 1. The patient is admitted to the hospital. We will continue his IV fluids and encourage him to eat. 2. He will be evaluated by Physical Therapy and Occupational Therapy. Job ID: [id number] MTDD
[2019-01-25] MEDS: Warfarin Sodium 2.5 MG TAB PO SCH (16:59)
[2019-01-25] MEDS ORDERED: Non-Formulary Item 1 EACH (Ranolazine [Ranexa] 1,000 MG) PO SCH (21:00)
[2019-01-25] MEDS ORDERED: levETIRAcetam 500 MG TAB PO SCH (21:00)
[2019-01-25] MEDS ORDERED: Guaifenesin DM 100-10/5 ML UDCUP PO PRN (21:07)
[2019-01-26 05:42] LABS: Prothrombin Time 31.1 SEC (12.0-14.7)
[2019-01-26 05:49] LABS: Anion Gap 11 mmol/L (10-20); BUN (Urea Nitrogen) 15 mg/dL (8.4-25.7); Calc. Creatinine Clearance 65 mL/min (70-130); Calcium 8.3 mg/dL (7.8-10.44); Carbon Dioxide 24 mmol/L (23-31); Chloride 98 mmol/L (98-107); Estimated GFR-MDRD 66; Glucose 102 mg/dL (83-110); Potassium 3.4 mmol/L (3.5-5.1); Sodium 130 mmol/L (136-145)
[2019-01-26 06:14] LABS: Anisocytosis SLIGHT = 6-15 cells (100X) (0-5/hpf); Hemoglobin 10.8 g/dL (14.0-18.0); Hypochromia SLIGHT = 6-15 cells (100X) (0-5/hpf); Lymphocytes 16 % (21-51); MDiff Complete? YES; Mean Corpuscular HGB CONC 33.1 g/dL (32.0-36.0); Mean Corpuscular Hemoglobin 25.6 pg (27.0-31.0); Mean Corpuscular Volume 77.2 fL (78.0-98.0); Mean Platelet Volume 7.8 fL (7.4-10.4); Microcytosis SLIGHT = 6-15 cells (100X) (0-5/hpf); Monocytes 14 % (0-10); Neutrophil 70 % (42-75); Ovalocytes SLIGHT = 2-5 cells (100X) (0-1/hpf); Platelet Count 139 thou/uL (130-400); Platelet Morphology Comment Appears Adequate; RBC Distribution Width 14.8 % (11.5-14.5); Red Blood Cell (RBC) Count 4.22 mill/uL (4.70-6.10); White Blood Cell (WBC) Count 6.5 thou/uL (4.8-10.8)
[2019-01-26] MEDS ORDERED: ALENDRONATE SODIUM 10 MG PO SCH (07:30)
[2019-01-26] MEDS: ALENDRONATE 10 MG PO SCH (08:08)
[2019-01-26] MEDS: Losartan Potassium 50 MG TAB PO SCH (08:33)
[2019-01-26] MEDS: pyridOXINE 50 MG (B6) TAB PO SCH (08:34)
[2019-01-26] MEDS: levETIRAcetam 500 MG TAB PO SCH ×2 (08:34→20:26)
[2019-01-26] MEDS: Chlorthalidone 25 MG TAB PO SCH (08:34)
[2019-01-26] MEDS: Aspirin Chewable 81 MG TAB PO SCH (08:34)
[2019-01-26] MEDS: Tamsulosin HCl 0.4 MG CAP PO SCH (08:34)
[2019-01-26] MEDS ORDERED: Warfarin Sodium 2.5 MG TAB PO SCH (09:00)
[2019-01-26] MEDS ORDERED: Aspirin Chewable 81 MG TAB PO SCH (09:00)
[2019-01-26] MEDS ORDERED: Tamsulosin HCl 0.4 MG CAP PO SCH (09:00)
[2019-01-26] MEDS ORDERED: PYRIDOXINE HCL 100 MG PO SCH (09:00)
[2019-01-26] MEDS ORDERED: Non-Formulary Item 1 EACH (Losartan Potassium [Losartan Potassium] 100 MG) PO SCH (09:00)
[2019-01-26] MEDS ORDERED: Chlorthalidone 25 MG TAB PO SCH (09:00)
[2019-01-26] MEDS ORDERED: Sodium Chloride 0.9% 50 ML ONE (11:44)
--- NOTE | 2019-01-26 16:25 | PRG ---
DATE OF SERVICE: 01/26/2019 SUBJECTIVE: Mr. Issa is an 83-year-old white male who for some reason was getting much weaker at the [facility]. He was followed by Dr. Jiménez. Unfortunately, the day of admission on the night before he admitted, he had three episodes, where he fell down while in the shelter. Sent to the emergency room and found to be dehydrated, hyponatremic, and generalized weakness. He was started on all of his home medicines and we did start him on an IV normal saline. His hydration has picked up nicely. His BUN and creatinine both improved, and his sodium is improved. I did discuss his case with PT and they did evaluate him today, and actually thought he was a lot better than they expected. If he continues to do this well, we may be able to send him back to the shelter tomorrow depending on what his lab values are. OBJECTIVE: VITAL SIGNS: This morning reveal blood pressure 122/56, pulse 66 to 69, respirations 18, O2 saturation 95% to 98% on room air, T-max 97.6. GENERAL: This is a well-developed, well-nourished, slightly obese white male, in no apparent distress at this time. HEENT: Reveals normocephalic and nontraumatic cranium. Pupils equally round and reactive. Extraocular movements are intact. Mouth is still slightly dry, but he is drinking well. NECK: Supple without masses, nodes, or bruits. CHEST: Clear to auscultation. No rales, rhonchi, wheezes, or cough is noted. Breath sounds are somewhat distant. HEART: Reveals a regular rate and rhythm without murmurs, gallops, or rubs. ABDOMEN: Obese, soft, nontender without organomegaly. Normal bowel sounds are noted. The patient has no tenderness at this time. No rebound or guarding is noted. GENITOURINARY: Exam is deferred. EXTREMITIES: Reveal no clubbing, cyanosis, or edema. LABORATORY DATA: Reveals white count 6500, which is down from his 13,400. Hemoglobin is 10.8, hematocrit 32.6, and platelet count is 139,000. Chemistries this morning, sodium is up to 130, potassium 3.4, chloride 98, BUN is 15, creatinine is 1.08, and his GFR is 66. Glucose is 102 this morning. TSH is 2.57. ASSESSMENT: 1. Hyponatremia much improved up to 130. 2. Dehydration with BUN much improved and creatinine 1.08. 3. Generalized weakness, stable. 4. Coronary artery disease. 5. Aortic valve replacement. 6. Thrombocytopenia. 7. Benign prostatic hypertrophy. 8. Vascular dementia. 9. Seizure disorder. 10. Hypertension. 11. History of Paget's disease. 12. History of congestive heart failure, unknown systolic or diastolic. 13. Generalized weakness. PLAN: 1. The patient actually is much improved today. 2. We will continue his fluids and encourage him to eat. 3. He was evaluated by PT and OT, and seems to be doing much better. 4. Possibility tomorrow to be have him discharged back to the shelter. Job ID: [id number]
[2019-01-26] MEDS: Sodium Chloride 0.9% 1,000 ML IV SCH (17:56)
[2019-01-26] MEDS: Warfarin Sodium 2.5 MG TAB PO SCH (17:56)
[2019-01-27 05:58] LABS: INR-International Normal Ratio 2.5; Prothrombin Time 26.7 SEC (12.0-14.7)
[2019-01-27] MEDS: ALENDRONATE 10 MG PO SCH (07:29)
[2019-01-27] MEDS: levETIRAcetam 500 MG TAB PO SCH (09:09)
[2019-01-27] MEDS: pyridOXINE 50 MG (B6) TAB PO SCH (09:09)
[2019-01-27] MEDS: Tamsulosin HCl 0.4 MG CAP PO SCH (09:09)
[2019-01-27] MEDS: Losartan Potassium 50 MG TAB PO SCH (09:09)
[2019-01-27] MEDS: Aspirin Chewable 81 MG TAB PO SCH (09:09)
[2019-01-27] MEDS: Chlorthalidone 25 MG TAB PO SCH (09:09)
[2019-01-27 10:10] LABS: Anion Gap 12 mmol/L (10-20); BUN (Urea Nitrogen) 13 mg/dL (8.4-25.7); Calc. Creatinine Clearance 68 mL/min (70-130); Calcium 8.5 mg/dL (7.8-10.44); Carbon Dioxide 23 mmol/L (23-31); Chloride 100 mmol/L (98-107); Estimated GFR-MDRD 69; Glucose 99 mg/dL (83-110); Potassium 3.2 mmol/L (3.5-5.1); Sodium 132 mmol/L (136-145)
[2019-01-27] MEDS ORDERED: Potassium Chloride 20 MEQ TAB PO SCH (11:00)
[2019-01-27 12:40] VITALS: BP 112/56; TEMP 97.7
[2019-01-27] MEDS: Sodium Chloride 0.9% 1,000 ML IV SCH (14:21)
[2019-01-27] MEDS: Warfarin Sodium 2.5 MG TAB PO SCH (16:29)
--- NOTE | 2019-01-28 14:26 | DIS ---
DATE OF ADMISSION: 01/25/2019 DATE OF DISCHARGE: 01/27/2019 HOSPITAL COURSE: Mr. Issa is 83-year-old white male, who lives at [facility]. Over the past several days, he was getting weaker and weaker, and on the day of admission, he actually was found on the floor 3 different times. He was seen in the emergency room and found to be hyponatremic and extremely weak. He was also dehydrated. He was admitted to [facility] as an active patient and he was immediately started on normal saline. His hyponatremia reveals the sodium was down to 127. Next day, it was improved to 129 and then 130, and then today, the patient's sodium was 132. He is back to eating well. He states he is back to his normal strength and stamina, and he is going to be discharged back to [facility]. PHYSICAL EXAMINATION: VITAL SIGNS: Today reveal a blood pressure 112/56, pulse 67 to 68, respirations 16 to 20, O2 saturation 93% to 98% on room air, T-max 97.7. GENERAL: This is a well-developed, well-nourished, very pleasant 83-year-old white male, who states he is doing well and ready to go back to the [facility]. HEENT: Normocephalic and nontraumatic cranium. Pupils are equal, round, and reactive. Extraocular movements are intact. Nose and throat are slightly dry, but clear. NECK: Supple without masses, nodes, or bruits. CHEST: Clear to auscultation. No rales, rhonchi, wheezes, or cough is heard. Breath sounds are still different, but clear. HEART: Reveals a regular rate and rhythm without murmurs, gallops, or rubs. ABDOMEN: Soft, nontender without organomegaly. Normal bowel sounds are noted. No rebound or guarding is noted. GENITOURINARY: Deferred. EXTREMITIES: Reveal no clubbing, cyanosis, or edema. LABORATORY DATA: Today reveals sodium 132. DISCHARGE MEDICATIONS: Include the following; 1. Keppra 500 mg b.i.d. 2. Coumadin 2.5 mg daily. 3. Ranexa 1000 mg b.i.d. 4. Tamsulosin 0.4 mg daily. 5. Pyridoxine 100 mg daily. 6. Losartan 100 mg daily. 7. Chlorthalidone 25 mg daily. 8. Aspirin 81 mg daily. 9. Alendronate sodium 10 mg. The patient also has p.r.n. medicines including; 1. Tylenol. 2. MiraLAX. 3. Clonidine. 4. Maalox. 5. Loperamide. ASSESSMENT: 1. Hyponatremia. 2. Dehydration. 3. Generalized weakness. 4. Coronary artery disease. 5. Aortic valve replacement in the past. 6. Thrombocytopenia. 7. BPH. 8. Vascular dementia. 9. Seizure disorder. 10. Hypertension. 11. History of Paget disease. 12. History of congestive heart failure, unknown systolic or diastolic. PLAN: 1. The patient is doing very well. He is ready for discharge back to [facility]. 2. The patient will continue with increasing his fluids and eating well. 3. The patient will be transferred back to the [facility]. 4. We will continue his present hospital medications, which are exactly the same as his previous [facility] medicines. 5. The patient will be followed by Dr. Jiménez in 1-06/02 to 2 weeks. Job ID: [id number]
== END 2019-01-27 16:37 | DRG 641 ==
LOC: NAV ERS 22:50 → NAV ACUTE 01-25 01:12
PROVIDERS: ADMIT Family Medicine; ATTEND Family Medicine
DX: E87.1 Hypo-osmolality and hyponatremia (principal); I25.10 Atherosclerotic heart disease of native coronary artery without angina pectoris; I25.2 Old myocardial infarction; M81.0 Age-related osteoporosis without current pathological fracture; Z86.73 Personal history of transient ischemic attack (TIA), and cerebral infarction without residual deficits; I50.9 Heart failure, unspecified; N40.0 Benign prostatic hyperplasia without lower urinary tract symptoms; I11.0 Hypertensive heart disease with heart failure; Z90.49 Acquired absence of other specified parts of digestive tract; Z95.2 Presence of prosthetic heart valve; Z88.5 Allergy status to narcotic agent; Z88.8 Allergy status to other drugs, medicaments and biological substances; Z88.0 Allergy status to penicillin; Z79.82 Long term (current) use of aspirin; E86.0 Dehydration; D69.6 Thrombocytopenia, unspecified; G40.909 Epilepsy, unspecified, not intractable, without status epilepticus
CPT/HCPCS: 71045; 72100; 80048; 80053; 81003; 81015; 82550; 83690; 84443; 84484; 85025; 85610; 93005; J7050